=== PATIENT | female | born 1980 | race Caucasian/White ===

== ENCOUNTER 2016-11-05 19:54 | Emergency (ER) | payer OTHER ==
--- NOTE | 2016-11-05 20:29 | ER Document Report ---
ED Medical Screen (RME) - General Chief Complaint: Abdominal Pain Stated Complaint: SORE THROAT Time Seen by Provider: 11/05/16 20:20 Notes: Patient says that she awakened today with fevers and headache and nasal congestion, sore throat, and aching all over with a fever. She also is on her menstrual cycle at this time. About 4:00 this afternoon, she drank a cup of hot coffee and immediately felt pain in the right abdomen. She has had her gallbladder removed. Patient continued to have this pain and went to a local urgent care where they did a strep test and a flu test and did not tell her the results but said that she was tender over the right lower quadrant and needed to come to the emergency department for evaluation to rule out appendicitis. At that Urgent Care, patient's temperature was recorded using a cutaneous thermometer at the right adventism and it was 103, but her pulse rate was only 88, which is very unusual. Additionally, it is very unusual for someone to develop acute appendicitis in just 2-3 hours. H: Cholecystectomy, depression and [facility] TRAVEL OUTSIDE OF THE [place] IN LAST 30 DAYS: No - Related Data Allergies/Adverse Reactions: No Known Allergies Allergy (Unverified 01/15/12 19:26) Past Medical History - Social History Family history: CAD, DM, Other - migraines Neurological Medical History: Denies: Hx Seizures Renal/ Medical History: Denies: Hx Peritoneal Dialysis Psychiatric Medical History: Reports: Hx Depression Past Surgical History: Reports: Hx Section, Hx Cholecystectomy, Hx Orthopedic Surgery - right knee miniscal repair. Denies: Hx Pacemaker. Comment Only: Hx Hysterectomy - HCG NEGATIVE - Immunizations Hx Diphtheria, Pertussis, Tetanus Vaccination: Yes Physical Exam - Vital signs Vitals: Temp Pulse Resp BP Pulse Ox 98.9 F 93 18 125/72 99 11/05/16 19:56 11/05/16 19:56 11/05/16 19:56 11/05/16 19:56 11/05/16 19:56 Course - Vital Signs Vital signs: Temp Pulse Resp BP Pulse Ox 98.9 F 93 18 125/72 99 11/05/16 19:56 11/05/16 19:56 11/05/16 19:56 11/05/16 19:56 11/05/16 19:56
[2016-11-05 20:41] LABS: ABSOLUTE BASOPHILS # (AUTO) 0.1 10^3/uL (0.0-0.2); ABSOLUTE EOSINOPHILS # (AUTO) 0.1 10^3/uL (0.0-0.6); ABSOLUTE LYMPHOCYTES (AUTO) 2.1 10^3/uL (0.5-4.7); ABSOLUTE MONOCYTES (AUTO) 0.8 10^3/uL (0.1-1.4); ABSOLUTE NEUT (AUTO) 13.1 10^3/uL (1.7-8.2); BASOPHILS % (AUTO) 0.6 % (0-2); EOSINOPHILS % (AUTO) 0.9 % (0-6); HEMATOCRIT 42.3 % (36.0-47.0); HEMOGLOBIN 14.1 g/dL (12.0-15.5); LYMPHOCYTES % (AUTO) 13.1 % (13-45); MEAN CORPUSCULAR HEMOGLOBIN 28.1 pg (27.0-33.4); MEAN CORPUSCULAR HGB CONC 33.3 g/dL (32.0-36.0); MEAN CORPUSCULAR VOLUME 84 fl (80-97); MONOCYTES % (AUTO) 4.8 % (3-13); RED BLOOD COUNT 5.01 10^6/uL (3.72-5.28); RED CELL DISTRIBUTION WIDTH 13.3 % (11.5-14.0); SEGMENTED NEUTROPHILS % (AUTO) 80.6 % (42-78); WHITE BLOOD COUNT 16.2 10^3/uL (4.0-10.5)
[2016-11-05 20:58] LABS: APPEARANCE,URINE CLEAR; BILIRUBIN,URINE NEGATIVE (NEGATIVE); GLUCOSE, URINE NEGATIVE (NEGATIVE); KETONES,URINE NEGATIVE (NEGATIVE); LEUKOCYTE ESTERASE,URINE NEGATIVE (NEGATIVE); NITRITE,URINE NEGATIVE (NEGATIVE); PROTEIN,URINE NEGATIVE (NEGATIVE); URINE SPECIFIC GRAVITY 1.005; UROBILINOGEN,URINE NEGATIVE mg/dL (<2.0)
[2016-11-05 21:04] LABS: ALANINE AMINOTRANSFERASE 39 U/L (9-52); ALBUMIN 4.2 g/dL (3.5-5.0); ALKALINE PHOSPHATASE 67 U/L (38-126); ANION GAP 12 (5-19); ASPARTATE AMINO TRANSFERASE 21 U/L (14-36); BILIRUBIN,DIRECT 0.3 mg/dL (0.0-0.4); BILIRUBIN,TOTAL 0.5 mg/dL (0.2-1.3); BLOOD UREA NITROGEN 7 mg/dL (7-20); CALCIUM 9.7 mg/dL (8.4-10.2); CARBON DIOXIDE 22 mmol/L (22-30); CHLORIDE 102 mmol/L (98-107); CREATININE RESULT 0.61 mg/dL (0.52-1.25); GLUCOSE 95 mg/dL (75-110); POTASSIUM 4.5 mmol/L (3.6-5.0); SODIUM 136.2 mmol/L (137-145); TOTAL PROTEIN 7.1 g/dL (6.3-8.2)
[2016-11-05] MEDS ORDERED: NORMAL SALINE 1000 ML 1,000 ML IV ONE (21:18)
--- NOTE | 2016-11-05 22:16 | RADIOLOGY REPORT (SQ) ---
EXAM DESCRIPTION: CT ABD/PELVIS WITH IV ONLY COMPLETED DATE/TIME: 11/05/2016 10:04 pm REASON FOR STUDY: RLQ pain fever COMPARISON: None. TECHNIQUE: CT scan of the abdomen and pelvis performed using helical scanning technique with dynamic intravenous contrast injection. No oral contrast. Images reviewed with lung, soft tissue, and bone windows. Reconstructed coronal and sagittal MPR images reviewed. Delayed images for evaluation of the urinary system also acquired. All images stored on PACS. All CT scanners at this facility use dose modulation, iterative reconstruction, and/or weight based d osing when appropriate to reduce radiation dose to as low as reasonably achievable (ALARA). [facility]: Dose Right [facility]: CareDose [facility]: Dose Right [facility]: Teradose 4D [facility]: Omnireliant CONTRAST TYPE AND DOSE: 65mL Isovue 370 RENAL FUNCTION: None required. The patient is less than 50 years old. RADIATION DOSE: 10.98mGy. LIMITATIONS: None. FINDINGS: LOWER CHEST: No significant findings. No nodules or infiltrates. LIVER: Normal size. No masses or dilated ducts. SPLEEN: Normal size. No focal lesions. PANCREAS: No masses. No significant calcifications. No adjacent inflammation or peripancreatic fluid collections. Pancreatic duct not dilated. GALLBLADDER: Surgically absent. ADRENAL GLANDS: No significant masses or asymmetry. RIGHT KIDNEY AND URETER: No solid masses. No significant calcifications. No hydronephrosis or hyd roureter. LEFT KIDNEY AND URETER: No solid masses. No significant calcifications. No hydronephrosis or hydr oureter. AORTA AND VESSELS: No aneurysm. No dissection. Renal arteries, SMA, celiac without stenosis. RETROPERITONEUM: No retroperitoneal adenopathy, hemorrhage or masses. BOWEL AND PERITONEAL CAVITY: No masses or inflammatory changes. No free fluid or peritoneal masses. APPENDIX: Normal. PELVIS: No mass or free fluid. Normal bladder. ABDOMINAL WALL: No masses. No hernias. BONES: No significant or acute findings. OTHER: No other significant finding. IMPRESSION: NO SIGNIFICANT OR ACUTE FINDING IN THE ABDOMEN OR PELVIS ON CT SCAN WITH IV CONTRAST. TECHNICAL DOCUMENTATION: JOB ID: [id number] Quality ID # [id number]: Final reports with documentation of one or more dose reduction techniques (e.g., Au tomated exposure control, adjustment of the mA and/or kV according to patient size, use of iterative reconstruction technique) 2010 [employer]- All Rights Reserved
--- NOTE | 2016-11-05 22:35 | ER Document Report ---
ED General - General Chief Complaint: Abdominal Pain Stated Complaint: SORE THROAT Time Seen by Provider: 11/05/16 20:20 TRAVEL OUTSIDE OF THE [place] IN LAST 30 DAYS: No - HPI Patient complains to provider of: Abdominal pain sore throat Notes: Patient was seen in the local urgent care for fever sore throat and right lower quadrant abdominal pain. Patient was referred to the ER for further evaluation. Patient states currently on her menstrual cycle developed right lower quadrant pain intermittently for the last few days however more constant today. Patient states also sore throat. Patient also is having some nausea vomiting. States recently she had a son at home with GI symptoms consistent with nausea vomiting. Patient denies any recent travel denies any recent antibiotics. - Related Data Allergies/Adverse Reactions: No Known Allergies Allergy (Unverified 01/15/12 19:26) Past Medical History - Social History Smoking Status: Unknown if Ever Smoked Family History: Reviewed & Not Pertinent Patient has suicidal ideation: No Patient has homicidal ideation: No Neurological Medical History: Denies: Hx Seizures Renal/ Medical History: Denies: Hx Peritoneal Dialysis Psychiatric Medical History: Reports: Hx Depression Past Surgical History: Reports: Hx Section, Hx Cholecystectomy, Hx Orthopedic Surgery - right knee miniscal repair. Denies: Hx Pacemaker. Comment Only: Hx Hysterectomy - HCG NEGATIVE - Immunizations Hx Diphtheria, Pertussis, Tetanus Vaccination: Yes Review of Systems - Review of Systems Constitutional: No symptoms reported EENT: Throat pain Cardiovascular: No symptoms reported Respiratory: No symptoms reported Gastrointestinal: Abdominal pain, Nausea, Vomiting Genitourinary: No symptoms reported Female Genitourinary: No symptoms reported Musculoskeletal: No symptoms reported Skin: No symptoms reported Hematologic/Lymphatic: No symptoms reported Neurological/Psychological: No symptoms reported Physical Exam - Vital signs Vitals: Temp Pulse Resp BP Pulse Ox 98.9 F 93 18 125/72 99 11/05/16 19:56 11/05/16 19:56 11/05/16 19:56 11/05/16 19:56 11/05/16 19:56 Interpretation: Normal - General General appearance: Appears well, Alert - HEENT Head: Normocephalic, Atraumatic Eyes: Normal Pupils: PERRL - Respiratory Respiratory status: No respiratory distress Chest status: Nontender Breath sounds: Normal Chest palpation: Normal - Cardiovascular Rhythm: Regular Heart sounds: Normal auscultation Murmur: No - Abdominal Inspection: Normal Distension: No distension Bowel sounds: Normal Tenderness: Tender - Tenderness right lower quadrant. No: McBurney's point, Blount's sign, Guarding, Rebound Organomegaly: No organomegaly - Back Back: Normal, Nontender - Extremities General upper extremity: Normal inspection, Nontender, Normal color, Normal ROM , Normal temperature General lower extremity: Normal inspection, Nontender, Normal color, Normal ROM , Normal temperature, Normal weight bearing. No: Galina's sign - Neurological Neuro grossly intact: Yes Cognition: Normal Orientation: AAOx4 Forrest Coma Scale Eye Opening: Spontaneous Forrest Coma Scale Verbal: Oriented Forrest Coma Scale Motor: Obeys Commands [place] Coma Scale Total: 15 Speech: Normal Motor strength normal: LUE, RUE, LLE, RLE Sensory: Normal - Psychological Associated symptoms: Normal affect, Normal mood - Skin Skin Temperature: Warm Skin Moisture: Dry Skin Color: Normal Course - Re-evaluation Re-evalutation: 11/05/16 23:35 Patient does have a slight fever with right lower quadrant tenderness. Therefore patient underwent a CT scan showing a normal appendix. Patient has a viral syndrome patient was encouraged to follow primary care physician and will be discharged home. - Vital Signs Vital signs: Temp Pulse Resp BP Pulse Ox 98.9 F 93 18 125/72 99 11/05/16 19:56 11/05/16 19:56 11/05/16 19:56 11/05/16 19:56 11/05/16 19:56 - Laboratory Result Diagrams: 11/05/16 20:25 11/05/16 20:25 Laboratory results interpreted by me: 11/05/16 11/05/16 11/05/16 20:25 20:25 20:30 WBC 16.2 H Seg Neutrophils % 80.6 H Absolute Neutrophils 13.1 H Sodium 136.2 L Urine Blood LARGE H Discharge - Discharge Clinical Impression: Sore throat (viral) Abdominal pain Qualifiers: Abdominal location: right lower quadrant Qualified Code(s): R10.31 - Right lower quadrant pain Condition: Good Disposition: HOME, SELF-CARE Instructions: Observation for Appendicitis ([facility]), Abdominal Pain ([facility]), Gastroenteritis (adult) ([facility]), Sore Throat ([facility]) Additional Instructions: Your CT scan tonight did not show any signs of an acute appendicitis. I do believe her symptoms more likely or a viral cause in nature please continue to drink plenty of water to stay hydrated. Please eat a very bland diet for the next few days. Take medications as prescribed. Prescriptions: Dicyclomine HCl [Bentyl 20 mg Tablet] 20 mg PO QID #40 tablet Ondansetron [Zofran Odt 4 mg Tablet] 1 tab PO Q4H PRN #30 tab.rapdis PRN Reason: For Nausea/Vomiting Referrals: KIANNA GOVEA MD [Primary Care Provider] - Follow up in 3-5 days
[2016-11-05] MEDS ORDERED: ONDANSETRON ODT 4 MG TAB (6 TAB/DSPK) PO PRN (22:37)
[2016-11-05 23:10] VITALS: BP 95/48
== END 2016-11-05 23:12 | disposition home or self-care (01) ==
LOC: ER 19:54
DX: J02.9 Acute pharyngitis, unspecified (principal); R10.31 Right lower quadrant pain; R11.2 Nausea with vomiting, unspecified
CPT/HCPCS: 99284; 36415; 87070; 87880; 83690; 84703; 85025; 80053; 81001; 74177; J7030

== ENCOUNTER 2016-11-21 11:56 | Emergency (ER) | payer BC, OTHER ==
[2016-11-21 12:14] VITALS: BP 122/76
[2016-11-21] MEDS ORDERED: ONDANSETRON 4 MG TAB.RAPDIS PO ONE (12:34)
[2016-11-21] MEDS ORDERED: OXYCODONE-ACETAMINOPHEN 5-325 MG TABLET PO ONE (12:34)
--- NOTE | 2016-11-21 12:36 | ER Document Report ---
ED Medical Screen (RME) - General Chief Complaint: Abdominal Pain Stated Complaint: PELVIC PAIN Time Seen by Provider: 11/21/16 12:28 Notes: 36-year-old female patient with left pelvic pain. She was seen at [facility] yesterday and sent to [facility] for an ultrasound. She was called later in the day and told there was a mass on her left ovary. She had a negative urine test was done in the office, and a send out blood test was done. Patient reports her had a vasectomy 10 years ago and it is unlikely she is . I have greeted and performed a rapid initial assessment of this patient. A comprehensive ED assessment and evaluation of the patient, analysis of test results and completion of the medical decision making process will be conducted by additional ED providers. TRAVEL OUTSIDE OF THE [place] IN LAST 30 DAYS: No - Related Data Allergies/Adverse Reactions: No Known Allergies Allergy (Verified 11/21/16 12:11) Past Medical History - Social History Chew tobacco use (# tins/day): No Frequency of alcohol use: None Drug Abuse: None Family history: CAD, DM, Other - migraines Neurological Medical History: Denies: Hx Seizures Renal/ Medical History: Denies: Hx Peritoneal Dialysis Psychiatric Medical History: Reports: Hx Depression Past Surgical History: Reports: Hx Section, Hx Cholecystectomy, Hx Orthopedic Surgery - right knee miniscal repair. Denies: Hx Pacemaker. Comment Only: Hx Hysterectomy - HCG NEGATIVE - Immunizations Hx Diphtheria, Pertussis, Tetanus Vaccination: Yes Physical Exam - Vital signs Vitals: Temp Pulse Resp BP Pulse Ox 97.9 F 81 20 122/76 98 11/21/16 12:11 11/21/16 12:11 11/21/16 12:11 11/21/16 12:11 11/21/16 12:11 Course - Vital Signs Vital signs: Temp Pulse Resp BP Pulse Ox 97.9 F 81 20 122/76 98 11/21/16 12:11 11/21/16 12:11 11/21/16 12:11 11/21/16 12:11 11/21/16 12:11
--- NOTE | 2016-11-21 14:21 | ER Document Report ---
ED GI/ - General Mode of Arrival: Ambulatory Information source: Patient TRAVEL OUTSIDE OF THE [place] IN LAST 30 DAYS: No - HPI Patient complains to provider of: Abdominal pain, Diarrhea. No: Dysuria Onset: Other - Refer to HPI notes Associated symptoms: denies: Dizzy, Fever Similar symptoms previously: Yes Recently seen / treated by doctor: Yes <FAHEEM CRAWLEY - Last Filed: 11/21/16 19:13> <SOFY GIRALDO - Last Filed: 11/22/16 01:07> - General Chief Complaint: Abdominal Pain Stated Complaint: PELVIC PAIN Time Seen by Provider: 11/21/16 12:28 Notes: Patient is a 36 year old female presenting to the emergency department for left pelvic pain. Patient was seen at [facility] yesterday and sent to [facility] for an ultrasound. Adeel was told via phone that she has a mass on her left ovary. Patient had a negative urine test at [facility] and a blood test was sent out. Patient reports that her had a vasectomy 10 years ago and states he has also been out of town for the past 3 weeks. Patient states her pain has gotten worse and is moving over to the right and up into her left ribs. Patient states she has had some white/clear vaginal discharge and also has had some recent diarrhea. Patient denies any fever, vaginal pain, or urinary symptoms. Patient denies any history of ovarian torsion or ovarian cysts. (FAHEEM CRAWLEY) - Related Data Allergies/Adverse Reactions: No Known Allergies Allergy (Verified 11/21/16 12:11) Past Medical History - General Information source: Patient - Social History Smoking Status: Current Every Day Smoker Chew tobacco use (# tins/day): No Frequency of alcohol use: None Drug Abuse: None Family History: None Patient has suicidal ideation: No Patient has homicidal ideation: No Psychiatric Medical History: Reports: Hx Depression Past Surgical History: Reports: Hx Section, Hx Cholecystectomy, Hx Orthopedic Surgery - right knee miniscal repair - Immunizations Hx Diphtheria, Pertussis, Tetanus Vaccination: Yes <FAHEEM CRAWLEY - Last Filed: 11/21/16 19:13> Review of Systems - Review of Systems Constitutional: No symptoms reported EENT: No symptoms reported Cardiovascular: No symptoms reported Respiratory: No symptoms reported Gastrointestinal: No symptoms reported Genitourinary: No symptoms reported Female Genitourinary: No symptoms reported Musculoskeletal: No symptoms reported Skin: No symptoms reported Hematologic/Lymphatic: No symptoms reported Neurological/Psychological: No symptoms reported -: Yes All other systems reviewed and negative <FAHEEM CRAWLEY - Last Filed: 11/21/16 19:13> Physical Exam <FAHEEM CRAWLEY - Last Filed: 11/21/16 19:13> <SOFY GIRALDO - Last Filed: 11/22/16 01:07> - Vital signs Vitals: Temp Pulse Resp BP Pulse Ox 97.9 F 81 20 122/76 98 11/21/16 12:11 11/21/16 12:11 11/21/16 12:11 11/21/16 12:11 11/21/16 12:11 - Notes Notes: GENERAL: Alert, interacts well. No acute distress. HEAD: Normocephalic, atraumatic. EYES: Pupils equal, round, and reactive to light. Extraocular movements intact. ENT: Oral mucosa moist, tongue midline. NECK: Full range of motion. Supple. Trachea midline. LUNGS: Clear to auscultation bilaterally, no wheezes, rales, or rhonchi. No respiratory distress. HEART: Regular rate and rhythm. No murmurs, gallops, or rubs. ABDOMEN: Soft, suprapubic abdominal pain, left lower quadrant abdominal pain, and left mid abdominal pain. No sign of masses.. Non-distended. Bowel sounds present in all 4 quadrants. EXTREMITIES: Moves all 4 extremities spontaneously. No edema. No cyanosis. NEUROLOGICAL: Alert and oriented x3. Normal speech. PSYCH: Normal affect, normal mood. SKIN: Warm, dry, normal turgor. No rashes or lesions noted. (FAHEEM CRAWLEY) Course - Laboratory Result Diagrams: 11/21/16 12:37 11/21/16 12:37 <FAHEEM CRAWLEY - Last Filed: 11/21/16 19:13> - Laboratory Result Diagrams: 11/21/16 12:37 11/21/16 12:37 <SOFY GIRALDO - Last Filed: 11/22/16 01:07> - Re-evaluation Re-evalutation: 11/21/16 17:02 CBC unremarkable, CMP unremarkable, test negative, CRP and ESR both normal, urinalysis negative. Transvaginal ultrasound shows abnormal heterogeneous area within the left side of the uterus, possibly consistent with degenerated fibroid. Other etiologies cannot be excluded. Patient does not have an ectopic as her test is negative. Discussed with patient the possibility of cancer and the importance of follow-up. This could be the cause of her pain. Patient will be given ibuprofen and acetaminophen for pain control. Discharge to home. (SOFY GIRALDO) - Vital Signs Vital signs: Temp Pulse Resp BP Pulse Ox 97.9 F 81 20 122/76 98 11/21/16 12:11 11/21/16 12:13 11/21/16 12:13 11/21/16 12:13 11/21/16 12:13 Discharge <FAHEEM CRAWLEY - Last Filed: 11/21/16 19:13> <SOFY GIRALDO - Last Filed: 11/22/16 01:07> - Discharge Clinical Impression: Intermittent left lower quadrant abdominal pain, Mass of uterus determined by ultrasound Condition: Stable Disposition: HOME, SELF-CARE Additional Instructions: The ultrasound of your pelvis does not show any ovarian mass but it does show a mass on the left side of your uterus. This could possibly be a degenerated fibroid but we cannot exclude other possibilities such as cancer. It is very important that you follow-up with your primary care physician or with your OB/ [facility] to have this followed and possibly evaluated further with a biopsy. Please use ibuprofen (Motrin or Advil) 600-800 mg every 8 hours as needed for pain or fever. You may also use acetaminophen (Tylenol) 1000 mg every 4-6 hours as needed for pain or fever. Please be aware that many medications contain acetaminophen, do not exceed a total of 1000 mg of acetaminophen every 6 hours. Please return to the emergency department for any new or concerning symptoms. Referrals: SERVANDO HE MD [ACTIVE STAFF] - Follow up in 1 week Scribe Attestation: 11/22/16 01:07 I personally performed the services described in the documentation, reviewed and edited the documentation which was dictated to the scribe in my presence, and it accurately records my words and actions. (SOFY GIRALDO) Scribe Documentation - Scribe Written by Scribe:: Haider Monterroso 11/21/16 14:22 acting as scribe for :: Bita <FAHEEM CRAWLEY - Last Filed: 11/21/16 19:13>
[2016-11-21 14:50] LABS: ABSOLUTE BASOPHILS # (AUTO) 0.1 10^3/uL (0.0-0.2); ABSOLUTE EOSINOPHILS # (AUTO) 0.2 10^3/uL (0.0-0.6); ABSOLUTE LYMPHOCYTES (AUTO) 3.6 10^3/uL (0.5-4.7); ABSOLUTE MONOCYTES (AUTO) 0.5 10^3/uL (0.1-1.4); ABSOLUTE NEUT (AUTO) 6.1 10^3/uL (1.7-8.2); BASOPHILS % (AUTO) 0.8 % (0-2); EOSINOPHILS % (AUTO) 1.5 % (0-6); HEMATOCRIT 44.6 % (36.0-47.0); HGB HCT DIFFERENCE 0.4; LYMPHOCYTES % (AUTO) 34.8 % (13-45); MEAN CORPUSCULAR HEMOGLOBIN 28.8 pg (27.0-33.4); MEAN CORPUSCULAR HGB CONC 33.6 g/dL (32.0-36.0); MEAN CORPUSCULAR VOLUME 86 fl (80-97); MONOCYTES % (AUTO) 4.6 % (3-13); RED BLOOD COUNT 5.21 10^6/uL (3.72-5.28); SEGMENTED NEUTROPHILS % (AUTO) 58.3 % (42-78); WHITE BLOOD COUNT 10.5 10^3/uL (4.0-10.5)
[2016-11-21 15:00] LABS: ALANINE AMINOTRANSFERASE 24 U/L (9-52); ALBUMIN 3.9 g/dL (3.5-5.0); ALKALINE PHOSPHATASE 57 U/L (38-126); ANION GAP 10 (5-19); ASPARTATE AMINO TRANSFERASE 18 U/L (14-36); BILIRUBIN,DIRECT 0.3 mg/dL (0.0-0.4); BILIRUBIN,TOTAL 0.6 mg/dL (0.2-1.3); BLOOD UREA NITROGEN 8 mg/dL (7-20); CALCIUM 9.6 mg/dL (8.4-10.2); CARBON DIOXIDE 25 mmol/L (22-30); CHLORIDE 103 mmol/L (98-107); GLUCOSE 110 mg/dL (75-110); POTASSIUM 4.2 mmol/L (3.6-5.0); SODIUM 138.4 mmol/L (137-145); TOTAL PROTEIN 6.9 g/dL (6.3-8.2)
[2016-11-21 15:01] LABS: C-REACTIVE PROTEIN < 5.0 mg/L (<10.0)
[2016-11-21 15:11] LABS: APPEARANCE,URINE SLIGHTLY-CLOUDY; BILIRUBIN,URINE NEGATIVE (NEGATIVE); GLUCOSE, URINE NEGATIVE (NEGATIVE); KETONES,URINE NEGATIVE (NEGATIVE); LEUKOCYTE ESTERASE,URINE NEGATIVE (NEGATIVE); NITRITE,URINE NEGATIVE (NEGATIVE); PROTEIN,URINE NEGATIVE (NEGATIVE); URINE SPECIFIC GRAVITY 1.017; UROBILINOGEN,URINE NEGATIVE mg/dL (<2.0)
[2016-11-21 15:26] LABS: ERYTHROCYTE SEDIMENTATION RATE 8 mm/hr (0-20)
--- NOTE | 2016-11-21 15:56 | RADIOLOGY REPORT (SQ) ---
EXAM DESCRIPTION: U/S NON OB PEL TV W/DOPPLER COMPLETED DATE/TIME: 11/21/2016 3:32 pm REASON FOR STUDY: L ovarian mass, increased pain, r/o torsion COMPARISON: Abdominal and pelvic CT scan dated 11/05/2016 and report of outside ultrasound dated 2016 TECHNIQUE: Dynamic and static grayscale images acquired of the pelvis via transvaginal approach and recorded on PACS. Additional selected color Doppler and spectral images recorded. LIMITATIONS: None. FINDINGS: UTERUS: A complex appearing heterogeneous area is identified in the uterus to the left of midline measuring 2.3 x 2.1 x 1.9 cm in diameters. This finding was described on the outside ultraso und report. This area was present on the previous CT scan. By clinical history the patient has a ne gative beta HCG. This would make an ectopic gestation unlikely as a differential possibility. The o ther differential possibilities would include a degenerated uterine fibroid as the most likely etiolo gy however other etiologies cannot be excluded. MRI may be of value for further evaluation. ENDOMETRIAL STRIPE: No focal or generalized thickening. No masses. CERVIX: No nabothian cysts. RIGHT OVARY: No abnormal masses. RIGHT OVARY DOPPLER: Normal arterial vascular flow without evidence for torsion. LEFT OVARY: No abnormal masses. LEFT OVARY DOPPLER: Normal arterial vascular flow without evidence for torsion. FREE FLUID: None noted. OTHER: No other significant finding. MEASUREMENTS: UTERUS: 8.0 x 4.1 x 3.6 cm ENDOMETRIAL STRIPE: 6.9 mm RIGHT OVARY: 2.5 x 1.4 x 1.5 cm LEFT OVARY: 2.1 x 1.6 x 1.6 cm IMPRESSION: A complex appearing heterogeneous area is identified in the uterus to the left of midlin e as noted above. This finding was described on the outside ultrasound report. This area was presen t on the previous CT scan. Differential possibilities are as noted above. Clinical correlation is r ecommended. MRI may be of value for further evaluation. Other findings as noted above TECHNICAL DOCUMENTATION: JOB ID: [email or web address]- All Rights Reserved
== END 2016-11-21 17:50 | disposition home or self-care (01) ==
LOC: ER 11:56
DX: R19.00 Intra-abdominal and pelvic swelling, mass and lump, unspecified site (principal); R10.32 Left lower quadrant pain; R10.9 Unspecified abdominal pain; R10.2 Pelvic and perineal pain; N89.8 Other specified noninflammatory disorders of vagina; F17.200 Nicotine dependence, unspecified, uncomplicated
CPT/HCPCS: 99284; 36415; 84703; 85025; 85652; 86140; 80053; 81001; 76830; 93976; S0119